=== PATIENT | male | born 1960 | race Two or more races ===

== ENCOUNTER 2025-04-27 05:46 | Inpatient (IN) | payer MEDICAID, OTHER ==
[2025-04-27] VITALS (8 sets, daily range): BP systolic 153–156; BP diastolic 78–91; PULSE 64–87; RESP 16–18; TEMP 97.7–98.7; O2SAT 92–100
[~2025-04-27] VITALS: Ht 162.6 cm; Wt 59.0 kg
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
[2025-04-27 06:54] LABS: Rapid Influenza A Negative (Negative); Rapid Influenza B Negative (Negative)
[2025-04-27 06:55] LABS: COVID19 ANTIGEN SOFIA FIA NEGATIVE (NEGATIVE)
--- NOTE | 2025-04-27 07:01 | DVH ---
EXAM: XR Chest, 1 View CLINICAL INDICATION: sob TECHNIQUE: Frontal view of the chest. COMPARISON: None FINDINGS: LUNGS AND PLEURAL SPACES: Bibasilar atelectasis or pneumonia. No pneumothorax. HEART: Unremarkable. No cardiomegaly. MEDIASTINUM: Unremarkable. Normal mediastinal contour. BONES/JOINTS: Unremarkable. No acute fracture. OTHER FINDINGS: . IMPRESSION: Bibasilar atelectasis or pneumonia.
[2025-04-27 07:10] LABS: Anion Gap 7 (5-15); Basophils # (auto) 0.1 10 ^3/uL (0-0.2); Basophils % (auto) 1.3 % (0.0-2.0); Carbon Dioxide 29 mmol/L (20-31); Chloride 105 mmol/L (98-107); Eosinophils # (auto) 0.6 10 ^3/uL (0-0.8); Eosinophils % (auto) 11.8 % (0.0-7.0); Hematocrit 45.6 % (41.0-53.0); Hemoglobin 15.7 g/dL (13.5-17.5); Lymphocytes # (auto) 1.4 10 ^3/uL (0.4-5.4); Lymphocytes % (auto) 26.8 % (10.0-50.0); Mean Corpuscular Hemoglobin 29.4 pg (28.0-32.0); Mean Corpuscular Hgb Conc. 34.4 g/dL (32.0-36.0); Mean Corpuscular Volume 85.6 fL (80.0-100.0); Monocytes # (auto) 0.5 10 ^3/uL (0-1.3); Monocytes % (auto) 10.2 % (0.0-12.0); Neutrophils # (auto) 2.5 10 ^3/uL (1.6-8.6); Neutrophils % (auto) 49.9 % (37.0-80.0); Nucleated Red Blood Cells % 0.1 %; Platelet Count (auto) 283 10^3/uL (140-450); Potassium 4.4 mmol/L (3.5-5.1); Red Blood Cells 5.33 10^6/uL (4.5-5.90); Red Cell Distribution Width 14.2 % (11.8-14.3); Sodium 141 mmol/L (136-145); White Blood Cell 5.1 10^3/uL (4.4-10.8)
[2025-04-27 07:11] LABS: Calcium 9.7 mg/dL (8.7-10.4)
[2025-04-27 07:16] LABS: BUN/Creatinine Ratio 11.1 (10.0-20.0); Blood Urea Nitrogen 14 mg/dL (9-23); Glucose 100 mg/dL (74-106)
[2025-04-27] MEDS: cefTRIAXone 1GM/50ML D5W 50 ML IV ONE (09:03)
[2025-04-27] MEDS: methylPREDNISolone SOD SUCC 125 MG/2 ML VL IV ONE (09:03)
[2025-04-27] MEDS: AZITHROMYCIN 500MG/ 250ML 250 ML IV ONE (09:03)
[2025-04-27] MEDS ORDERED: DOCUSATE SOD 100 MG CAP PO PRN (09:30)
[2025-04-27] MEDS ORDERED: ACETAMINOPHEN 325 MG TAB PO PRN (09:30)
[2025-04-27] MEDS ORDERED: ONDANSETRON HCL 4 MG/2 ML VIAL IV PRN (09:30)
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
[2025-04-27] MEDS: methylPREDNISolone SOD SUCC 40 MG/ML VL IV SCH (10:00)
[2025-04-27] MEDS: SODIUM CHLORIDE 0.9% 1,000 ML IV ONE (12:12)
[2025-04-27] MEDS: ALBUTEROL SULF 2.5 MG/0.5ML(0.5%) NEB SOLN NEB SCH (12:14)
[2025-04-27] MEDS: IPRATROPIUM BROM 0.5 MG/2.5ML INH SOL NEB SCH (12:14)
[2025-04-27] MEDS: HYDROcodone-ACET 5/325MG TAB PO PRN (14:44)
[2025-04-27] MEDS ORDERED: HYDR1TAB97 PO (21:35)
[2025-04-27 23:16] LABS: Cocaine Screen, Urine Neg (NEGATIVE)
[2025-04-27 23:21] LABS: Amphetamine Screen, Urine Neg (NEGATIVE); Barbiturate Scree,Urine Neg (NEGATIVE); Benzodiazephine Screen, Urine Neg (NEGATIVE); Cannabinoid Screen, Urine Neg (NEGATIVE); Opiate Scree,Urine Pos (NEGATIVE); Phencyclidine Screen, Urine Neg (NEGATIVE)
[2025-04-28] VITALS (14 sets, daily range): BP systolic 121–144; BP diastolic 58–88; PULSE 59–92; RESP 14–18; TEMP 97.6–98.2; O2SAT 93–100
[2025-04-28] MEDS: MELATONIN 5 MG TAB PO ONE ×2 (00:14→22:46)
[2025-04-28] MEDS: GABAPENTIN 100 MG CAP PO ONE (05:57)
[2025-04-28 06:14] LABS: Albumin 4.1 g/dL (3.2-4.8); Alkaline Phosphatase 50 U/L (46-116); Anion Gap 9 (5-15); BUN/Creatinine Ratio 12.3 (10.0-20.0); Blood Urea Nitrogen 13 mg/dL (9-23); Calcium 9.1 mg/dL (8.7-10.4); Carbon Dioxide 23 mmol/L (20-31); Chloride 107 mmol/L (98-107); Potassium 4.3 mmol/L (3.5-5.1); Sodium 139 mmol/L (136-145); Total Protein 6.5 g/dL (5.7-8.2)
[2025-04-28 06:15] LABS: Bilirubin, Total 0.5 mg/dL (0.2-1.0)
[2025-04-28 06:18] LABS: Alanine Aminotransferase < 9 U/L (7-40); Aspartate Aminotransferase 10 U/L (13-40); Glucose 129 mg/dL (74-106)
[2025-04-28 06:33] LABS: Basophils # (auto) 0 10 ^3/uL (0-0.2); Basophils % (auto) 0.2 % (0.0-2.0); Eosinophils # (auto) 0 10 ^3/uL (0-0.8); Eosinophils % (auto) 0.1 % (0.0-7.0); Hematocrit 42.6 % (41.0-53.0); Hemoglobin 14.6 g/dL (13.5-17.5); Lymphocytes % (auto) 15.4 % (10.0-50.0); Mean Corpuscular Hemoglobin 29.3 pg (28.0-32.0); Mean Corpuscular Hgb Conc. 34.2 g/dL (32.0-36.0); Mean Corpuscular Volume 85.8 fL (80.0-100.0); Monocytes # (auto) 0.3 10 ^3/uL (0-1.3); Monocytes % (auto) 4.2 % (0.0-12.0); Neutrophils % (auto) 80.1 % (37.0-80.0); Nucleated Red Blood Cells % 0.2 %; Platelet Count (auto) 269 10^3/uL (140-450); Red Blood Cells 4.96 10^6/uL (4.5-5.90); Red Cell Distribution Width 13.9 % (11.8-14.3); White Blood Cell 6.2 10^3/uL (4.4-10.8)
[2025-04-28] MEDS: cefTRIAXone 1GM/50ML D5W 50 ML IV SCH (09:24)
[2025-04-28] MEDS: AZITHROMYCIN 500MG/ 250ML 250 ML IV SCH (10:34)
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
[2025-04-28] MEDS ORDERED: LORazepam 2MG/ML-1ML VIAL IV PRN (22:15)
[2025-04-28] MEDS: KETOROLAC TROMETH 30 MG/ML 1ML VIAL IV ONE (22:46)
[2025-04-29] VITALS (9 sets, daily range): BP systolic 141–169; BP diastolic 73–96; PULSE 67–78; RESP 14–18; TEMP 97.5–98.6; O2SAT 8–99
[2025-04-29] MEDS: TEMAZEPAM 15 MG CAP PO ONE (03:01)
--- NOTE | 2025-04-29 07:57 | DVH ---
EXAM: CT Head Without Intravenous Contrast CLINICAL INDICATION: diplopia TECHNIQUE: Axial computed tomography images of the head/brain without intravenous contrast. This CT exam was performed using one or more of the following dose reduction techniques: automated exposure control, adjustment of the mA and/or kV according to patient size, and/or use of iterative reconstru ction technique. CONTRAST: RADIATION DOSE: CTDIvol = 50.32 mGy, DLP = 1611.09 mGy-cm COMPARISON: None FINDINGS: BRAIN AND EXTRA-AXIAL SPACES: The cerebral and cerebellar sulci are prominent consistent with brain atrophy. Areas of decreased attenuation in the deep cerebral white matter are consistent with small vessel ischemic/degenerative changes. No acute intracranial hemorrhage, midline shift or mass effec t. If symptoms persist, further evaluation with MRI is recommended. BONES/JOINTS: Unremarkable. No acute fracture. SOFT TISSUES: Unremarkable. SINUSES: Unremarkable as visualized. No acute sinusitis. MASTOID AIR CELLS: Unremarkable as visualized. No mastoid effusion. OTHER FINDINGS: . . IMPRESSION: 1. Generalized brain atrophy. 2. Small vessel ischemic/degenerative changes. 3. No acute intracranial hemorrhage, midline shift or mass effect. If symptoms persist, further eval uation with MRI is recommended.
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
--- NOTE | 2025-04-29 10:54 | DVH ---
PROCEDURE: MRI BRAIN HEAD WO CONTRAST INDICATION: Diplopia EXAM DATE: 04/29/2025 09:57 AM COMPARISON: None TECHNIQUE: MRI of the brain without intravenous contrast. FINDINGS: Diffusion weighted images of the brain demonstrate no evidence of acute infarction. There is no evidence of acute intracranial hemorrhage, extra-axial collection, mass effect, midline s hift, herniation or hydrocephalus. The ventricles, sulci and cisterns appear age appropriate. [id number] periventricular and deep white matter signal abnormality consistent with chronic mallorie rovascular ischemic disease. Mild fluid tracking along the optic nerves. There are no signal abnormalities on the susceptibility weighted sequences. The major vascular flow voids are present. The visualized paranasal sinuses and mastoid air cells are clear. The surrounding soft tissues and o sseous structures are unremarkable. IMPRESSION: 1. No evidence of acute infarction, intracranial hemorrhage, mass effect or hydrocephalus. Mild-to-mo derate changes of chronic microvascular ischemic disease. Mild fluid tracking along the optic nerves, correlate with same day MR orbits. HS:Y
--- NOTE | 2025-04-29 12:54 | DVH ---
PROCEDURE: MRI MRI ORBITS W OUT CONTRAST Indication: Diplopia COMPARISON: None TECHNIQUE: Multiplanar multisequence images of the orbits were obtained with and without contrast. FINDINGS: The ventricles are midline and normal in size. Cisterns patent. Major intracranial flow voids intac t. The orbits and retrobulbar spaces are unremarkable. The extraocular muscles appear unremarkable. Opt ic chiasm is unremarkable. Bilateral optic nerves are unremarkable in appearance. The imaged portions of the paranasal sinuses demonstrate mucosal thickening of the ethmoids IMPRESSION: 1. Unremarkable noncontrast MRI of the orbits.
[2025-04-30] MEDS ORDERED: AMLO1TAB22 PO (02:20)
== END 2025-04-29 15:40 | disposition left against medical advice (07) | DRG 137 ==
LOC: ER 05:46 → OVERFLOW 09:28 → CENTRAL 21:17
PROVIDERS: ADMIT Internal Medicine Geriatric Medicine; ATTEND Internal Medicine Geriatric Medicine
DX: J15.69 Pneumonia due to other Gram-negative bacteria (principal); J96.01 Acute respiratory failure with hypoxia; J44.0 Chronic obstructive pulmonary disease with (acute) lower respiratory infection; J15.9 Unspecified bacterial pneumonia; F17.200 Nicotine dependence, unspecified, uncomplicated; Z20.822 Contact with and (suspected) exposure to COVID-19; Z53.29 Procedure and treatment not carried out because of patient's decision for other reasons
CPT/HCPCS: 36415; 70450; 70540; 70551; 71045; 80048; 80053; 80307; 85025; 87426; 87804; 94640; 99291; 99292; G0378; J1885

== ENCOUNTER 2025-04-29 22:54 | Emergency (ER) | payer MEDICAID ==
[~2025-04-29] VITALS: Ht 162.6 cm; Wt 57.3 kg
[~2025-04-29 22:54] MED LIST: HYDR1TAB97 PO
[2025-04-29 23:15] VITALS: BP 164/99; PULSE 78; RESP 20; TEMP 98; O2SAT 96
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
[2025-04-30] MEDS ORDERED: AMLO1TAB22 PO (02:20)
== END 2025-04-29 23:25 ==
LOC: ER 22:59
DX: I10 Essential (primary) hypertension (principal); R05.9 Cough, unspecified; R06.02 Shortness of breath; Z02.89 Encounter for other administrative examinations

== ENCOUNTER 2025-04-30 02:08 | Emergency (ER) | payer MEDICAID ==
[~2025-04-30] VITALS: Ht 162.6 cm; Wt 57.3 kg
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
[2025-04-30] MEDS ORDERED: AMLO1TAB22 PO (02:20)
[2025-04-30] MEDS: cloNIDine HCL 0.1 MG TAB PO ONE (02:25)
[2025-04-30 03:49] VITALS: BP 102/72; PULSE 70; RESP 18; TEMP 98.3; O2SAT 98
== END 2025-04-30 03:51 | disposition home or self-care (01) ==
LOC: ER 02:08
DX: H53.2 Diplopia (principal); I10 Essential (primary) hypertension; Z02.89 Encounter for other administrative examinations